=== PATIENT | female | born 1955 | race Two or more races ===

== ENCOUNTER 2021-08-05 07:45 | Outpatient (CLI) | payer OTHER | END 2021-08-05 07:58 | disposition home or self-care (01) | LOC: MAMO-SONO 07:45 | PROVIDERS: ATTEND Internal Medicine Endocrinology, Diabetes & Metabolism | DX: Z12.31 Encounter for screening mammogram for malignant neoplasm of breast (principal); N64.4 Mastodynia; E04.1 Nontoxic single thyroid nodule; N61.0 Mastitis without abscess ==

== ENCOUNTER 2021-08-12 11:16 | Outpatient (CLI) | payer OTHER | END 2021-08-12 11:19 | disposition home or self-care (01) | LOC: NUCLEAR 11:16 | PROVIDERS: ATTEND Internal Medicine Endocrinology, Diabetes & Metabolism | DX: M81.0 Age-related osteoporosis without current pathological fracture (principal) ==

== ENCOUNTER 2021-08-23 07:57 | Emergency (ER) | payer OTHER ==
[~2021-08-23] VITALS: Ht 157.5 cm; Wt 58.1 kg
== END 2021-08-23 10:45 | disposition home or self-care (01) ==
LOC: ER 07:57
DX: U07.1 COVID-19 (principal)

== ENCOUNTER 2021-08-23 11:14 | Outpatient (CLI) | payer OTHER | END 2021-08-23 12:10 | disposition home or self-care (01) | LOC: ASH CLINIC 11:14 | PROVIDERS: ATTEND General Practice | DX: Z23 Encounter for immunization (principal); U07.1 COVID-19 ==

== ENCOUNTER 2023-05-25 07:29 | Outpatient (CLI) | payer OTHER | END 2023-05-25 07:36 | disposition home or self-care (01) | LOC: MAMO-SONO 07:29 | PROVIDERS: ATTEND Obstetrics & Gynecology Gynecology | DX: N60.11 Diffuse cystic mastopathy of right breast (principal); N60.12 Diffuse cystic mastopathy of left breast; N95.0 Postmenopausal bleeding ==

== ENCOUNTER 2023-06-11 11:36 | Outpatient (CLI) | payer OTHER | END 2023-06-11 11:39 | disposition home or self-care (01) | LOC: RAD 11:36 | PROVIDERS: ATTEND Obstetrics & Gynecology Gynecology | DX: J41.1 Mucopurulent chronic bronchitis (principal); Z01.818 Encounter for other preprocedural examination; N60.11 Diffuse cystic mastopathy of right breast; N60.12 Diffuse cystic mastopathy of left breast; N95.0 Postmenopausal bleeding ==